=== PATIENT | female | born 1995 | race Caucasian/White ===

== ENCOUNTER 2019-05-29 22:56 | Emergency (ER) | payer OTHER ==
[~2019-05-29] VITALS: Ht 149.9 cm; Wt 52.0 kg
[2019-05-29] MEDS ORDERED: HYDROCODONE/ACETAMINOPHEN 5/325MG TABLET PO ONE (23:30)
[2019-05-29] MEDS ORDERED: ACETAMINOPHEN 500MG TABLET PO ONE (23:30)
[2019-05-30 00:37] VITALS: BP 123/65
== END 2019-05-30 00:30 | disposition home or self-care (01) ==
LOC: ER 22:56
DX: S09.90XA Unspecified injury of head, initial encounter (principal); W22.09XA Striking against other stationary object, initial encounter; Y93.89 Activity, other specified; Y92.89 Other specified places as the place of occurrence of the external cause; Y99.8 Other external cause status
CPT/HCPCS: 99283